=== PATIENT | male | born 1960 | race Caucasian/White ===

== ENCOUNTER 2020-07-17 06:52 | Emergency (ER) | payer MEDICAID ==
[~2020-07-17] VITALS: Ht 170.2 cm; Wt 64.9 kg
[~2020-07-17 06:52] MED LIST: BACL10TA PO; FOLI-43 PO; LACT10SO6 PO; LEVO500T89 PO; MULT-1021 PO; OMEP40CA33 PO; PROP10TA10 PO; TAMS-11 PO
[2020-07-17 07:12] VITALS: BP_SYST 113
--- NOTE | 2020-07-17 07:16 | NUR ---
Patient to ER bed 03 to gown for evaluation. Side rails up.
--- NOTE | 2020-07-17 07:33 | NUR ---
PRESENTS TO ER TO ABD PAIN. WAS HERE 1 WEEK AGO FOR GALLBLADDER STONES. PAIN LEVEL 5/10. THROBBING AND RADIATING TO RIGHT LOWER BACK. HX OF CIRHOSIS AND ASCITES. V/S STABLE AAOX4. PLACED IN GOWN AND ON MONITOR
--- NOTE | 2020-07-17 07:37 | NUR ---
DR. VALENZUELA AT BEDSIDE
[2020-07-17 08:13] LABS: BASOPHILS % (AUTO) 0.4 % (0.0-2.0); EOSINOPHILS # (AUTO) 0.1 K/uL (0.0-0.4); EOSINOPHILS % (AUTO) 2.5 % (0.0-4.0); HEMATOCRIT 33.1 % (36-54); HEMOGLOBIN 11.2 g/dL (14.0-18.0); LYMPHOCYTES # (AUTO) 1.7 K/uL (1.0-5.5); LYMPHOCYTES % (AUTO) 31.3 % (20.5-51.5); MEAN CORPUSCULAR HEMOGLOBIN 35 pg (27-31); MEAN CORPUSCULAR HGB CONC 34 % (32-36); MEAN CORPUSCULAR VOLUME 104 fL (79.0-98.0); MONOCYTES % (AUTO) 17.7 % (1.7-9.3); NEUTROPHILS # (AUTO) 2.6 K/uL (1.8-7.7); NEUTROPHILS % (AUTO) 48.1 % (40.0-70.0); PLATELET COUNT (AUTO) 84 K/uL (130-430); RED BLOOD CELL COUNT(AUTO) 3.18 MIL/uL (4.2-6.2); RED CELL DISTRIBUTION WIDTH 16.9 % (9.0-15.0); WHITE BLOOD COUNT (AUTO) 5.4 K/uL (4.8-10.8)
[2020-07-17 08:29] LABS: CALCIUM 8.2 mg/dL (8.4-11.0); CREATININE 0.88 mg/dL (0.55-1.30); POTASSIUM 3.5 mmol/L (3.5-5.1)
--- NOTE | 2020-07-17 08:35 | NUR ---
ua collected and sent to the lab
--- NOTE | 2020-07-17 08:38 | NUR ---
Patient transported to radiology via , accompanied by senior cytogenetic technologist.
[2020-07-17 08:44] LABS: ALBUMIN 2.1 g/dL (3.4-4.8); TOTAL BILIRUBIN 7.8 mg/dL (0.0-1.0)
[2020-07-17 08:45] LABS: BILIRUBIN,URINE 2+ (NEGATIVE); BLOOD, URINE NEGATIVE (NEGATIVE); CLARITY/URINE CLEAR (CLEAR); COLOR,URINE YELLOW (YELLOW); GLUCOSE,URINE NEGATIVE (NEGATIVE); KETONES,URINE TRACE (NEGATIVE); LEUKOCYTE ESTERASE ,URINE NEGATIVE (NEGATIVE); NITRITE, URINE NEGATIVE (NEGATIVE); PH,URINE 6.5 (5.0-8.0); PROTEIN URINE TRACE (NEGATIVE)
[2020-07-17 09:11] LABS: BACTERIA,URINE None Seen /HPF (None Seen); RBC,URINE NONE SEEN /HPF (0-3); TRICHOMONAS,URINE None Seen /HPF (None Seen); WBC,URINE NONE SEEN /HPF (0-3); YEAST,URINE None Seen /HPF (None Seen)
[2020-07-17 09:52] VITALS: BP_SYST 113
--- NOTE | 2020-07-17 09:53 | NUR ---
Patient given written and verbal discharge instructions and verbalizes understanding. ER MD discussed with patient the results and treatment provided. Patient in stable condition. ID arm band removed. No Rx given. Patient educated on pain management and to follow up with PMD. Pain Scale 2/10 tolerable for patient . Opportunity for questions provided and answered. Medication side effect fact sheet provided.
== END 2020-07-17 09:53 | disposition home or self-care (01) ==
LOC: SED 06:52
DX: E80.6 Other disorders of bilirubin metabolism (principal); R10.31 Right lower quadrant pain; Z79.899 Other long term (current) drug therapy
CPT/HCPCS: 36415; 74176; 80053; 81000; 83690; 84484; 85025; 93005; 99285; J7030